=== PATIENT | female | born 1995 | race Caucasian/White ===

== ENCOUNTER 2023-06-17 09:16 | Emergency (ER) | payer SELFPAY ==
[2023-06-17 09:17] VITALS: BP 150/95; PULSE 71; RESP 18; TEMP 36.3; O2SAT 100
--- NOTE | 2023-06-17 09:54 | PC.NURSE ---
Patient up to desk asking for paperwork she brought from OSH because she is leaving. Patient ambulatory out of ED with stead gait and in no acute distress.
== END 2023-06-17 09:54 | disposition left against medical advice (07) ==
LOC: ANHED 09:59
DX: R10.9 Unspecified abdominal pain (principal)
CPT/HCPCS: 99199

== ENCOUNTER 2023-06-17 11:45 | Observation (INO) | payer BC, SELFPAY ==
[2023-06-17] VITALS (34 sets, daily range): BP systolic 102–146; BP diastolic 56–100; PULSE 58–98; RESP 12–19; TEMP 36.6–37.3; O2SAT 96–100
--- NOTE | ~2023-06-17 | NM_ITS ---
EXAMINATION: NM hepatobiliary wo pharm DATE: 06/18/2023 12:13 INDICATION: Right upper quadrant abdominal pain. COMPARISON: Ultrasound 06/17/2023 TECHNIQUE: 4.4 mCi Tc-99m mebrofenin (Choletec) was administered intravenously. Scintigraphic images of the abdomen were obtained for one hour. Then, the patient drank 8 oz Ensure, and imaging was cont inued for 60 minutes. FINDINGS: There is normal clearance of radiotracer from the blood pool. There is homogeneous tracer u ptake by the liver. Activity progresses to the bowel and gallbladder. Gallbladder ejection fraction (GBEF) was 20%. Note that with this technique, normal GBEF >= 33%. IMPRESSION: 1. Low gallbladder ejection fraction, consistent with gallbladder dysfunction and/or chronic cholecy stitis. Reviewed, dictated and finalized at location A. LAR ALARM SUPERINTENDENT IMPRESSION: 1. Low gallbladder ejection fraction, consistent with gallbladder dysfunction and/or chronic cholecystitis.
--- NOTE | ~2023-06-17 | US_ITS ---
EXAMINATION: US right upper quadrant DATE: 06/17/2023 16:21 INDICATION: RUQ pain TECHNIQUE: Multiple grayscale and Doppler ultrasound images of the right upper quadrant were obtained . COMPARISON: None available. FINDINGS: The pancreas is poorly visualized. The hand shaker reports significant midline tenderness t o transducer pressure during the examination. The liver is normal with normal echogenicity and echote xture. No surface nodularity. Normal hepatopetal flow in the main portal vein. The gallbladder is nor mal with no abnormal wall thickening, pericholecystic fluid or stones. The common bile duct measures 3 mm. There was no sonographic Argueta sign. IMPRESSION: Poor visualization of the pancreas. Significant midline tenderness encountered during examination. Reviewed, dictated and finalized at location K. CAL VOUCHER CLERK
--- NOTE | ~2023-06-17 | XR_ITS ---
XR chest 2V 06/18/2023 08:45 Indication: Chest pain Procedure: PA and lateral views the chest Comparison: No prior studies for comparison. Findings: Heart size normal. There is evidence for chronic granulomatous disease. No focal air space disease, pulmonary edema, pleural effusion or suspected pneumothorax. Impression: 1: No acute cardiopulmonary disease. Reviewed, dictated and finalized at location L. NG FORMER HAND Impression: 1: No acute cardiopulmonary disease.
[2023-06-17 15:36] LABS: Basophils Percent Auto 0.2 % (0.2-1.2); Hematocrit 39.7 % (37.0-47.0); Hemoglobin 13.5 g/dL (12.0-15.0); Immature Granulocyte Absolute 0.03 K/mm3 (0.00-0.031); Immature Granulocyte Percent A 0.3 % (0-0.5); Lymphocytes Absolute Auto 0.79 K/mm3 (0.9-3.2); Lymphocytes Percent Auto 6.9 % (18.3-44.2); Mean Corpuscular Hemoglobin 28.8 pg (26-34); Mean Corpuscular Volume 84.8 fl (80-100); Mean Platelet Volume 11.1 fl (7.4-10.4); Monocytes Absolute Auto 0.1 K/mm3 (0.1-0.6); Monocytes Percent Auto 1.2 % (2.6-8.5); Neutrophils Absolute Auto 10.4 K/mm3 (1.3-6.7); Neutrophils Percent Auto 91.4 % (45.5-73.1); Platelet Count Result 245 k/mm3 (150-375); Red Blood Count 4.68 M/mm3 (4.2-5.4); Red Cell Distribution Width 12.8 % (11.5-14.5); White Blood Count 11.4 K/mm3 (4.5-10.0)
[2023-06-17 15:38] LABS: Appearance Urine Clear (Clear); Bilirubin Urine Negative (Negative); Blood Urine Negative (Negative); Color Urine Yellow (Yellow); Glucose Urine UA Negative (Negative); Ketones Urine 2+ mg/dL (Negative); Leukocyte Esterase Ur Negative LEU/UL (Negative); Nitrate Urine Negative (Negative); Protein Urine Negative (Negative); Specific Grav Ur 1.015 (1.001-1.035); Urobilinogen Urine 0.2 mg/dL (<2.0); pH Urine 8.5 (5.0-9.0)
[2023-06-17 15:46] LABS: Alanine Aminotransferase 33 U/L (6-35); Albumin Level 4.7 g/dL (3.5-5.1); Alkaline Phosphatase 74 U/L (38-126); Anion Gap 10 mmol/L (8-16); Aspartate Amino Transferase 29 U/L (14-36); Bilirubin,Total 1.7 mg/dL (0.2-1.3); Blood Urea Nitrogen 7 mg/dL (7-17); Carbon Dioxide 24 mmol/L (22-30); Chloride 103 mmol/L (98-107); Estimated CRCL calculation 128 ml/min; Estimated Glomerular Filt Rate > 60; Glucose 130 mg/dL (65-110); Lipase 108 U/L (23-300); Potassium 3.3 mmol/L (3.4-5.0); Sodium 137 mmol/L (137-145)
[2023-06-17 15:50] LABS: Add Urine Microscopic? NO
[2023-06-17] MEDS: MORPHINE SULFATE (*CRX) 4 MG/ML INJ IV PUSH ×2 (15:56→18:13)
[2023-06-17] MEDS: ONDANSETRON INJ 4 MG/2 ML VIAL IV PUSH ×2 (15:56→18:13)
[2023-06-17] MEDS: SODIUM CHLORIDE 0.9% IV 1,000 ML 999 ML IV CONT (15:56)
--- NOTE | 2023-06-17 17:52 | ED.GENADULT ---
HPI - General Adult General Chief complaint: Abdominal Pain Stated complaint: abd pain Time Seen by Provider: 06/17/23 15:14 History of Present Illness HPI narrative: Patient is a 28-year-old female who presents ER with abdominal pain over last 3 days. She was seen at [facility] and had unremarkable lab work and abnormal CT scan of her abdomen and pelvis. She was started on Levsin, famotidine, and omeprazole. Her pain persists. It is worse with eating drinking. It is intermittent in nature. No radiation. Mainly located in the epigastrium and right upper quadrant. No history of gallstones. No fevers or chills or sweats. Related Data Allergies Allergy/AdvReac Type Severity Reaction Status Date / Time No Known Allergies Allergy Verified 06/17/23 15:53 Review of Systems Review of Systems: All systems reviewed & are unremarkable except as noted in HPI and below Constitutional: Constitutional: Reports no additional constitutional complaints ENT: Reports system reviewed and no additional complaints, except as documented Cardiovascular: Cardiovascular: Reports no additional cardiovascular complaints Respiratory: Respiratory: Reports no additional respiratory complaints Gastrointestinal: Gastrointestinal: Reports abdominal pain, Reports heartburn, Denies diarrhea, Reports nausea and Reports vomiting Genitourinary: Genitourinary: Reports no additional female genitourinary complaints Musculoskeletal: Musculoskeletal: Reports no additional musculoskeletal complaints PMFSH Past Medical History Medical History (Updated 06/17/23 @ 18:13 by Jimmy Mello MD) Healthy female adult Surgical History Surgical History (Updated 06/17/23 @ 18:11 by Jimmy Mello MD) No history of previous surgery Exam Narrative: GENERAL: uncomfortable-appearing, well-nourished, and in no acute distress. HEAD: Normocephalic, atraumatic. ENT: Nares clear, no rhinorrhea or epistaxis. Mucous membranes moist. NECK: Supple. CHEST: Clear to auscultation. No respiratory distress. HEART: Regular rate and rhythm. Normal peripheral pulses. ABDOMEN: Soft, tender palpation with guarding in the right upper quadrant epigastrium, nondistended. EXTREMITIES: Normal range of motion. No edema. SKIN: Warm, dry, no rash. NEURO: Alert and oriented x3. PSYCH: Normal mood and affect. Course Course Emergency Course: Patient is still reporting significant pain after morphine. White count mildly elevated with 91% neutrophils. Slight elevation in bilirubin as well. Will recommend admission for observation and HIDA scan, possible MRCP. Will have GI consult tomorrow. Accepted by the hospitalist. Will keep NPO and hydrate. Vital Signs Vital signs: Vital Signs Temperature 97.8 F 06/17/23 12:14 Pulse Rate 80 06/17/23 12:14 Respiratory Rate 16 06/17/23 12:14 Blood Pressure 133/94 H 06/17/23 12:14 Pulse Oximetry 100 06/17/23 12:14 Oxygen Delivery Room Air 06/17/23 12:14 Temperature 97.8 F 06/17/23 12:14 Pulse Rate 73 06/17/23 15:53 Respiratory Rate 18 06/17/23 15:53 Blood Pressure 130/99 H 06/17/23 15:53 Pulse Oximetry 99 06/17/23 15:53 Oxygen Delivery Room Air 06/17/23 15:23 Medical Decision Making Vital Signs Vital Signs: Vital Signs Temperature 97.8 F 06/17/23 12:14 Pulse Rate 80 06/17/23 12:14 Respiratory Rate 16 06/17/23 12:14 Blood Pressure 133/94 H 06/17/23 12:14 Pulse Oximetry 100 06/17/23 12:14 Oxygen Delivery Room Air 06/17/23 12:14 Temperature 97.8 F 06/17/23 12:14 Pulse Rate 73 06/17/23 15:53 Respiratory Rate 18 06/17/23 15:53 Blood Pressure 130/99 H 06/17/23 15:53 Pulse Oximetry 99 06/17/23 15:53 Oxygen Delivery Room Air 06/17/23 15:23 Lab Data 06/17/23 15:29 06/17/23 15:29 Labs: Lab Results 06/17/23 Range/Units 15:29 WBC 11.4 H (4.5-10.0) K/mm3 RBC 4.68 (4.2-5
--- NOTE | 2023-06-17 20:44 | ADMGEN ---
This patient, Chiquita Warner, was admitted to [facility] Surg Room 312-01. Patient/family oriented to hospital policies and general routines including ID bracelet, bed and alarms, visiting hours, pain management, procedures, bathroom and other care routines, personal items, smoking policy, room service/diet, and visiting hours. Information on how to activate the Rapid Response Team has been discussed. Patient/Family are encouraged to report perceived risks to care and to ask questions if they do not understand what they are told or what they should do.
[2023-06-17] MEDS: SODIUM CHLORIDE 0.9% IV 1,000 ML 125 ML IV CONT (21:11)
[2023-06-18] VITALS (10 sets, daily range): BP systolic 116–140; BP diastolic 84–100; PULSE 71–83; RESP 16–20; TEMP 36.2–37.2; O2SAT 99–100
--- NOTE | 2023-06-18 01:22 | ECG_ITS ---
Measurements Intervals [place] Rate: 72 P: 42 TN: 152 QRS: 19 QRSD: 96 T: 11 QT: 379 QTc: 416 Interpretive Statements SINUS RHYTHM NO PREVIOUS ECG AVAILABLE FOR COMPARISON Electronically Signed On 06-18-2023 9:17:41 GUEST SERVICES DIRECTOR by Erika Chan M.D.
--- NOTE | 2023-06-18 01:25 | PM.IMHP ---
H&P: HPI History of Present Illness Date/Time: 06/18/23 01:25 Chief Complaint: abdominal pain Narrative: 28F w/ no PMH or surgeries who presents for the second time with abdominal/chest pain. On she was sitting and developed left sided upper abdominal pain along the ribline which was sharp and then migrates to the middle upper and then right side of belly. It lasts for approx 6 hours and is aggravated by movement, deep breathing, and eating. She vomits a few times nonbloody during the pain. She presented to [facility] and had unremarkable lab work. She was started on Levsin, famotidine and omeprazole. The pain eventually returned on day of admission while she was sitting again. She denies any other symptoms and upon evaluation in Room 312 she reports the pain has subsided, although it initially was resistance to morphine in the ER. She denies cough, fever, smoking, diarrhea. Review of Systems Review of Systems: All systems reviewed & are unremarkable except as noted in HPI and below (HPI) [facility] Past Medical History Medical History (Updated 06/18/23 @ 01:29 by Fallon Espinal MD) Healthy female adult Surgical History Surgical History (Updated 06/17/23 @ 18:11 by Jimmy Mello MD) No history of previous surgery Social History Social History Smoking status: Never smoker Do You Feel Safe in your Home?: Yes Lack of Transportation: No Lack of Food: Never True Current Housing: I Have Housing Concerned About Future Housing: No Difficulty Paying Gas/Electric Bills: No Difficulty Paying for Meds: No Currently Unemployed: No Education: Bachelor's Degree Difficulty w/ Childcare or Family Care: No Spiritual care concerns: No Meds Home Medications and Allergies Home Medications Medication Instructions Recorded Confirmed Type No Home Medications 06/17/23 06/17/23 History Allergies Allergy/AdvReac Type Severity Reaction Status Date / Time almond Allergy Other Verified 06/17/23 20:48 Vital Signs Vital Signs - 24 hr 06/17/23 12:14 06/17/23 15:23 06/17/23 15:53 Temperature 97.8 F Pulse Rate 80 72 73 Respiratory Rate 16 16 18 Blood Pressure 133/94 H 130/99 H Pulse Oximetry 100 99 99 Oxygen Delivery Room Air Room Air 06/17/23 18:18 06/17/23 15:22 06/17/23 15:27 Temperature Pulse Rate 75 71 58 L Respiratory Rate 16 13 Blood Pressure 113/74 102/74 Pulse Oximetry 100 100 99 Oxygen Delivery 06/17/23 15:30 06/17/23 15:31 06/17/23 15:45 Temperature Pulse Rate 83 78 72 Respiratory Rate 19 16 Blood Pressure 137/93 H Pulse Oximetry 100 100 Oxygen Delivery 06/17/23 15:53 06/17/23 16:00 06/17/23 16:01 Temperature Pulse Rate 73 77 80 Respiratory Rate 15 15 12 Blood Pressure 130/99 H 133/96 H Pulse Oximetry 99 100 100 Oxygen Delivery 06/17/23 16:15 06/17/23 16:16 06/17/23 16:30 Temperature Pulse Rate Respiratory Rate Blood Pressure 145/87 H Pulse Oximetry 100 100 100 Oxygen Delivery 06/17/23 16:31 06/17/23 16:45 06/17/23 16:46 Temperature Pulse Rate Respiratory Rate Blood Pressure 136/84 146/100 H Pulse Oximetry 98 98 100 Oxygen Delivery 06/17/23 17:00 06/17/23 17:01 06/17/23 18:18 Temperature Pulse Rate Respiratory Rate Blood Pressure Pulse Oximetry 100 100 100 Oxygen Delivery 06/17/23 18:19 06/17/23 18:30 06/17/23 18:31 Temperature Pulse Rate Respiratory Rate Blood Pressure 113/74 108/56 L Pulse Oximetry 99 96 96 Oxygen Delivery 06/17/23 18:45 06/17/23 19:00 06/17/23 19:15 Temperature Pulse Rate Respiratory Rate Blood Pressure Pulse Oximetry 98 99 100 Oxygen Delivery 06/17/23 20:10 06/17/23 19:29 06/17/23 19:30 Temperature Pulse Rate Respiratory Rate 16 Blood Pressure 118/78 118/74 Pulse Oximetry 98 100 100 Oxygen Delivery 06/17/23 19:45 06/17/23 20:00 06/17/23 20:
[2023-06-18 01:59] LABS: Hematocrit 34.9 % (37.0-47.0); Hemoglobin 11.8 g/dL (12.0-15.0); Mean Corpuscular HGB Conc 33.8 g/dl (32-36); Mean Corpuscular Hemoglobin 29.1 pg (26-34); Mean Corpuscular Volume 86.2 fl (80-100); Mean Platelet Volume 11.5 fl (7.4-10.4); Platelet Count Result 230 k/mm3 (150-375); Red Blood Count 4.05 M/mm3 (4.2-5.4); Red Cell Distribution Width 12.7 % (11.5-14.5)
[2023-06-18 02:14] LABS: Alanine Aminotransferase 27 U/L (6-35); Albumin Level 3.9 g/dL (3.5-5.1); Alkaline Phosphatase 60 U/L (38-126); Anion Gap 8 mmol/L (8-16); Aspartate Amino Transferase 20 U/L (14-36); Bilirubin,Total 1.7 mg/dL (0.2-1.3); Blood Urea Nitrogen 6 mg/dL (7-17); Calcium 8.7 mg/dL (8.4-10.2); Carbon Dioxide 25 mmol/L (22-30); Chloride 108 mmol/L (98-107); Estimated CRCL calculation 128 ml/min; Estimated Glomerular Filt Rate > 60; Glucose 89 mg/dL (65-110); Sodium 141 mmol/L (137-145)
[2023-06-18] MEDS: KCL 20 MEQ/SW 100 ML 100 ML 50 MEQ IVPB (02:18)
[2023-06-18 02:25] LABS: Troponin I < 0.012 ng/mL (0.000-0.034)
--- NOTE | 2023-06-18 07:02 | WPDGICN ---
Assessment and Plan Assessment and plan (1) Abdominal pain: Code(s): R10.9 - Unspecified abdominal pain Status: Acute Assessment and Plan: the pain actually is in the very lower subcostal area. It did radiated to the epigastric area. It was there that she had the most severe discomfort, hot burning sensation but that has resolved. An ultrasound of the abdomen was done which was unremarkable except that she was quite tender during the exam. She is scheduled for a HIDA scan today. If that is unremarkable I will proceed to perform EGD later today. (2) Left-sided chest pain: Code(s): R07.9 - Chest pain, unspecified Status: Acute Assessment and Plan: As she shows me where she has her discomfort it seems that this may be form of costochondritis of fibromyalgia. What is I have however is held this comes on acutely and subsides then within a few hours and then is gone for several days. Plan HIDA scan, the EGD GI Consult Note Consult date/time: 06/18/23 07:02 HPI: Chiquita Warner is a 28 year old female who was admitted yesterday with severe pain across her lower thorax upper abdomen. She states that this happened a [place] also. She had gone to emergency room and was subsequently discharged. She states that she has had this from time to time. Generally she she feels a pressure in the left upper quadrant near the bottom of her rib cage. She might have a bowel movement in that it is gone. These last 2 attacks of been severe. It begins in the left upper quadrant and the last episode radiate across towards the right upper quadrant. Weighted was most intense it felt as though there was a hot coal in the xiphoid area in fact it was difficult for her to take a breath because of the pain. She has not had a fever. She does not use NSAIDs. There is no history of peptic ulcer disease. She kg takes an [id number] antacid for heartburn. She denies weight loss. There is no available family history due to her being adopted. Review of Systems Review of Systems: All systems reviewed & are unremarkable except as noted in HPI and below PMFSH Past Medical History Medical History Healthy female adult Surgical History Surgical History No history of previous surgery Social History Social History Smoking status: Never smoker Do You Feel Safe in your Home?: Yes Lack of Transportation: No Lack of Food: Never True Current Housing: I Have Housing Concerned About Future Housing: No Difficulty Paying Gas/Electric Bills: No Difficulty Paying for Meds: No Currently Unemployed: No Education: Bachelor's Degree Difficulty w/ Childcare or Family Care: No Spiritual care concerns: No Meds Home Medications and Allergies Home Medications Medication Instructions Recorded Confirmed Type No Home Medications 06/17/23 06/17/23 History Allergies Allergy/AdvReac Type Severity Reaction Status Date / Time almond Allergy Other Verified 06/17/23 20:48 Vital Signs Vital Signs - 24 hr 06/17/23 12:14 06/17/23 15:23 06/17/23 15:53 Temperature 36.6 C Pulse Rate 80 72 73 Respiratory Rate 16 16 18 Blood Pressure 133/94 H 130/99 H Pulse Oximetry 100 99 99 Oxygen Delivery Room Air Room Air 06/17/23 18:18 06/17/23 15:22 06/17/23 15:27 Temperature Pulse Rate 75 71 58 L Respiratory Rate 16 13 Blood Pressure 113/74 102/74 Pulse Oximetry 100 100 99 Oxygen Delivery 06/17/23 15:30 06/17/23 15:31 06/17/23 15:45 Temperature Pulse Rate 83 78 72 Respiratory Rate 19 16 Blood Pressure 137/93 H Pulse Oximetry 100 100 Oxygen Delivery 06/17/23 15:53 06/17/23 16:00 06/17/23 16:01 Temperature Pulse Rate 73 77 80 Respiratory Rate 15 15 12 Blood Pressure 130/99 H 133/96 H Pul
[2023-06-18] MEDS: PANTOPRAZOLE SODIUM IV 40 MG VIAL IV PUSH (08:07)
[2023-06-18] MEDS: SODIUM CHLORIDE 0.9% IV 1,000 ML 125 ML IV CONT (08:08)
[2023-06-18 09:36] LABS: Influenza A QL RT-PCR Negative (Negative); Influenza B QL RT-PCR Negative (Negative); RSV RNA, RT-PCR Negative (Negative); SARS-CoV-2 RNA PCR Negative (Negative)
--- NOTE | 2023-06-18 10:24 | PM.IMPN ---
Progress Note: A&P Assessment and Plan (1) Abdominal pain: Code(s): R10.9 - Unspecified abdominal pain Status: Acute Plan 28F w/ no PMH or surgeries who presents for the second time with abdominal/chest pain. On she was sitting and developed left sided upper abdominal pain along the ribline which was sharp and then migrates to the middle upper and then right side of belly. It lasts for approx 6 hours and is aggravated by movement, deep breathing, and eating. She vomits a few times nonbloody during the pain. She presented to [facility] and had unremarkable lab work. She was started on Levsin, famotidine and omeprazole. The pain eventually returned on day of admission while she was sitting again. She denies any other symptoms and upon evaluation in Room 312 she reports the pain has subsided, although it initially was resistance to morphine in the ER. She denies cough, fever, smoking, diarrhea. Admitted on 06/17/23 The pt was admitted for HIDA scan and GI consult. HIDA scan with low gallbladder ejection fraction consistent with gallbladder dysfunction and/or chronic cholecystitis. She is going for EGD for further evaluation per GI. Will consult General surgery for possible gallbladder related etiology with the abnormal HIDA scan. The pain starts on left side, is burning, and exacerbated by deep breathing, eating, and movement. Full Code. SCD's. Subjective Date/time seen: 06/18/23 10:24 Interval history: Feeling better. Underwent HIDA scan today. Scheduled to get a EGD Review of Systems Review of Systems: All systems reviewed & are unremarkable except as noted in HPI and below (HPI) Exam Narrative: GENERAL:? Well-nourished, and in no acute distress. HEAD: Normocephalic, atraumatic. ENT: Nares clear, no rhinorrhea or epistaxis.? Mucous membranes moist. NECK: Supple. CHEST: Clear to auscultation.? No respiratory distress. HEART: Regular rate and rhythm. ? Normal peripheral pulses. ABDOMEN: Soft,?nontender, nondistended. EXTREMITIES: Normal range of motion.? No edema. SKIN: Warm, dry, no rash. NEURO: Alert and oriented x3. PSYCH: Normal mood and affect. Objective Data Vital Signs Vital Signs: Vital Signs - 24 hr 06/17/23 12:14 06/17/23 15:23 06/17/23 15:53 Temperature 97.8 F Pulse Rate 80 72 73 Respiratory Rate 16 16 18 Blood Pressure 133/94 H 130/99 H Pulse Oximetry 100 99 99 Oxygen Delivery Room Air Room Air 06/17/23 18:18 06/17/23 15:22 06/17/23 15:27 Temperature Pulse Rate 75 71 58 L Respiratory Rate 16 13 Blood Pressure 113/74 102/74 Pulse Oximetry 100 100 99 Oxygen Delivery 06/17/23 15:30 06/17/23 15:31 06/17/23 15:45 Temperature Pulse Rate 83 78 72 Respiratory Rate 19 16 Blood Pressure 137/93 H Pulse Oximetry 100 100 Oxygen Delivery 06/17/23 15:53 06/17/23 16:00 06/17/23 16:01 Temperature Pulse Rate 73 77 80 Respiratory Rate 15 15 12 Blood Pressure 130/99 H 133/96 H Pulse Oximetry 99 100 100 Oxygen Delivery 06/17/23 16:15 06/17/23 16:16 06/17/23 16:30 Temperature Pulse Rate Respiratory Rate Blood Pressure 145/87 H Pulse Oximetry 100 100 100 Oxygen Delivery 06/17/23 16:31 06/17/23 16:45 06/17/23 16:46 Temperature Pulse Rate Respiratory Rate Blood Pressure 136/84 146/100 H Pulse Oximetry 98 98 100 Oxygen Delivery 06/17/23 17:00 06/17/23 17:01 06/17/23 18:18 Temperature Pulse Rate Respiratory Rate Blood Pressure Pulse Oximetry 100 100 100 Oxygen Delivery 06/17/23 18:19 06/17/23 18:30 06/17/23 18:31 Temperature Pulse Rate Respiratory Rate Blood Pressure 113/74 108/56 L Pulse Oximetry 99 96 96 Oxygen Delivery 06/17/23 18:45 06/17/23 19:00 06/17/23 19:15 Temperature Pulse Rate Respiratory Rate Blood Pressure Pulse Oximetry 98 99 100 Oxygen Delivery 06/17/23 20:10 06/17/23 19:29 06/17/23 19:30 Temper
[2023-06-18] MEDS: POTASSIUM CHLORIDE INJ 40 MEQ in SODIUM CHLORIDE 0.9% IV 500 ML 130 MEQ IVPB (11:35)
[2023-06-18] MEDS: METOCLOPRAMIDE HCL INJ 10 MG/2 ML VIAL IV PUSH (12:24)
--- NOTE | 2023-06-18 14:07 | PCCCNOTE ---
On 06/18/23, the student, [Felicity Puga], provided care and completed [facility] documentation on this patient. I have reviewed the student's documentation and agree with the findings.
--- NOTE | 2023-06-18 15:26 | WPDANESEPPF ---
Anes - Initial Pre Proc Eval Procedure: Operation Date: 06/18/23 15:30 Proposed Procedures p Esophagogastroduodenoscopy - Gomez Mancini MD Date/Time: 06/18/23 15:26 Surgeon: Luisito Gonzalez MD Pre Op Diagnosis: Uncontrolled RUQ pain Patient Data Age: 28 Gender: F Height: 1.65 m Weight: 86.4 kg Last Vital Signs Temp 36.2 C L 06/18/23 14:00 Pulse 83 06/18/23 14:00 Resp 18 06/18/23 14:00 BP 131/85 06/18/23 14:00 Pulse Ox 100 06/18/23 14:00 O2 Del Method Room Air 06/18/23 08:00 Allergies Allergy/AdvReac Type Severity Reaction Status Date / Time almond Allergy Other Verified 06/17/23 20:48 Home Medications Medication Instructions Recorded Confirmed Type No Home Medications 06/17/23 06/17/23 History Laboratory Tests 06/17/23 06/18/23 06/18/23 15:29 01:46 08:49 WBC 11.4 H K/mm3 10.0 K/mm3 (4.5-10.0) (4.5-10.0) RBC 4.68 M/mm3 4.05 L M/mm3 (4.2-5.4) (4.2-5.4) Hgb 13.5 g/dL 11.8 L g/dL (12.0-15.0) (12.0-15.0) Hct 39.7 % 34.9 L % (37.0-47.0) (37.0-47.0) MCV 84.8 fl 86.2 fl (80-100) (80-100) MCH 28.8 pg 29.1 pg (26-34) (26-34) MCHC 34.0 g/dl 33.8 g/dl (32-36) (32-36) RDW 12.8 % 12.7 % (11.5-14.5) (11.5-14.5) Plt Count 245 k/mm3 230 k/mm3 (150-375) (150-375) MPV 11.1 H fl 11.5 H fl (7.4-10.4) (7.4-10.4) Immature Gran % (Auto) 0.3 % (0-0.5) Neut % (Auto) 91.4 H % (45.5-73.1) Lymph % (Auto) 6.9 L % (18.3-44.2) [place] % (Auto) 1.2 L % (2.6-8.5) Eos % (Auto) 0.0 % (0-4.4) Baso % (Auto) 0.2 % (0.2-1.2) Lymph # (Auto) 0.79 L K/mm3 (0.9-3.2) [place] # (Auto) 0.1 K/mm3 (0.1-0.6) Eos # (Auto) 0.0 K/mm3 (0-0.3) Baso # (Auto) 0.0 K/mm3 (0.0-0.1) Abs Immat Gran (auto) 0.03 K/mm3 (0.00-0.031) Absolute Neuts (auto) 10.4 H K/mm3 (1.3-6.7) Absolute Nucleated RBC 0.0 K/mm3 (0.0-0.012) Nucleated RBC % 0.0 % (0.0-0.2) Sodium 137 mmol/L 141 mmol/L (137-145) (137-145) Potassium 3.3 L mmol/L 3.0 L mmol/L (3.4-5.0) (3.4-5.0) Chloride 103 mmol/L 108 H mmol/L (98-107) (98-107) Carbon Dioxide 24 mmol/L 25 mmol/L (22-30) (22-30) Anion Gap 10 mmol/L 8 mmol/L (8-16) (8-16) BUN 7 mg/dL 6 L mg/dL (7-17) (7-17) Creatinine 0.60 L mg/dL 0.60 L mg/dL (0.7-1.0) (0.7-1.0) Estim Creat Clear Calc 128 ml/min 128 ml/min Estimated GFR > 60 > 60 (59 - ) (59 - ) Glucose 130 H mg/dL 89 mg/dL (65-110) (65-110) Calcium 9.0 mg/dL 8.7 mg/dL (8.4-10.2) (8.4-10.2) Magnesium 2.0 mg/dL (1.6-2.3) Total Bilirubin 1.7 H mg/dL 1.7 H mg/dL (0.2-1.3) (0.2-1.3) AST 29 U/L 20 U/L (14-36) (14-36) ALT 33 U/L 27 U/L (6-35) (6-35) Alkaline Phosphatase 74 U/L 60 U/L (38-126) (38-126) Troponin I < 0.012 ng/mL (0.000-0.034) Total Protein 8.0 g/dL 7.0 g/dL (6.3-8.2) (6.3-8.2) Albumin 4.7 g/dL 3.9 g/dL (3.5-5.1) (3.5-5.1) Lipase 108 U/L (23-300) Urine Color Yellow (Yellow) Urine Appearance Clear (Clear) Urine pH 8.5 (5.0-9.0) Ur Specific [place] 1.015 (1.001-1.035) Urine Protein Negative mg/dL (Negative) Urine Glucose (UA) Negative mg/dL (Negative) Urine Ketones 2+ H mg/dL (Negative) Ur Blood (Man) Negative (Negative) Urine Nitrate Negative (Negative) Urine Bilirubin Negative (Negative) Urine Urobilinogen 0.2 mg/dL (<2.0) Leukocyte Esterase Rfl Negative AL/UL (Negative) Influenza A (RT-PCR) Negative (Negative) Influenza B (RT-PCR) Negative (Negative) RSV (RT-PCR) Neg
[2023-06-18] MEDS: LACTATED RINGERS 1,000 ML 150 ML IV CONT (15:35)
[2023-06-18] MEDS: ONDANSETRON INJ 4 MG/2 ML VIAL IV PUSH ×2 (16:07→20:13)
[2023-06-18] MEDS: MORPHINE SULFATE (*CRX) 2 MG/ML INJ IV PUSH ×3 (16:32→20:14)
[2023-06-18] MEDS: PROMETHAZINE HCL 25 MG/ML AMPUL 12.5 MG IV PUSH (17:21)
--- NOTE | 2023-06-18 20:35 | PM.CNGS ---
Assessment and Plan Assessment and plan (1) Abdominal pain: Code(s): R10.9 - Unspecified abdominal pain Status: Acute Assessment and Plan: seems more musculoskeletal in nature, not consistent c biliary dz, imaging all benign and no reproduction of symptoms c HIDA, cont serial exams and observation for now, try to ADAT History of Present Illness Consult details Consult date: 06/18/23 Reason for consult: abdominal pain Requesting physician: Lester Donald MD Narrative: The pt is a 28 y/o F presenting c/o severe, intermittent upper abd pain. Pt reports pain comes in waves and comes in a band like distribution from the LUQ and radiates across her upper abd. Pt reports nausea and poor appetite. Pt reports less severe episodes over the last few mos that mostly stay localized to LUQ. Pt reports she has now had two severe episodes since 06/14 requiring ED visits. Pt reports the episodes can last from minutes to hours. Pt denies any exacerbating or relieving factors. Pt denies reproduction of her symptoms during HIDA scan earlier today, but reports severe symptoms after EGD. Review of Systems Review of Systems: All systems reviewed & are unremarkable except as noted in HPI and below PMFSH Past Medical History Medical History GERD (gastroesophageal reflux disease) Surgical History Surgical History No history of previous surgery Social History Social History Smoking status: Never smoker Do You Feel Safe in your Home?: Yes Lack of Transportation: No Lack of Food: Never True Current Housing: I Have Housing Concerned About Future Housing: No Difficulty Paying Gas/Electric Bills: No Difficulty Paying for Meds: No Currently Unemployed: No Education: Bachelor's Degree Difficulty w/ Childcare or Family Care: No Spiritual care concerns: No Meds Home Medications and Allergies Home Medications Medication Instructions Recorded Confirmed Type No Home Medications 06/17/23 06/17/23 History Allergies Allergy/AdvReac Type Severity Reaction Status Date / Time almond Allergy Other Verified 06/17/23 20:48 Vital Signs Vital Signs - 24 hr 06/17/23 21:15 06/18/23 06:00 06/18/23 08:00 Temperature 37.3 C 37.2 C Pulse Rate 72 74 Respiratory Rate 16 18 Blood Pressure 133/86 119/84 Pulse Oximetry 100 100 100 Oxygen Delivery Room Air 06/18/23 14:00 06/18/23 15:33 06/18/23 15:46 Temperature 36.2 C L 36.6 C Pulse Rate 83 78 71 Respiratory Rate 18 16 20 Blood Pressure 131/85 116/91 H 129/88 Pulse Oximetry 100 100 99 Oxygen Delivery Room Air Room Air 06/18/23 15:56 06/18/23 16:06 06/18/23 16:35 Temperature 36.8 C Pulse Rate 79 80 83 Respiratory Rate 20 20 20 Blood Pressure 137/100 H 140/91 H 131/87 Pulse Oximetry 100 100 100 Oxygen Delivery Room Air Room Air 06/18/23 20:00 Temperature Pulse Rate 83 Respiratory Rate 20 Blood Pressure Pulse Oximetry 100 Oxygen Delivery Room Air Exam Const: General: cooperative, acute distress moderate, uncomfortable and overweight Orientation/consciousness: patient oriented x3 HENMT: Head: normal to inspection, normocephalic and atraumatic Eyes: General: appearance normal, both eyes and all related structures Neck: Neck: normal visual inspection, full ROM and no lymphadenopathy Resp: Auscultation: clear to auscultation bilaterally Cardio: Rate: regular rate Rhythm: regular rhythm GI: Inspection: normal to inspection and distended GI Palp: Yes abdominal tenderness, Yes Soft to palpation, Yes Tenderness to palpation present (GI), No Guarding due to palpation present (GI) and Yes Rigid due to palpation Skin: General skin exam: normal color and no rashes or lesions noted Neuro: General: patient oriented x3 and CN's II-XI intact bilaterally
[2023-06-19 06:00] VITALS: BP 108/62; PULSE 85; RESP 18; TEMP 37.1; O2SAT 99
[2023-06-19 06:52] LABS: Basophils Percent Auto 0.3 % (0.2-1.2); Eosinophils Absolute Auto 0.1 K/mm3 (0-0.3); Eosinophils Percent Auto 1.3 % (0-4.4); Hematocrit 36.1 % (37.0-47.0); Hemoglobin 12.3 g/dL (12.0-15.0); Immature Granulocyte Absolute 0.02 K/mm3 (0.00-0.031); Immature Granulocyte Percent A 0.2 % (0-0.5); Lymphocytes Percent Auto 37.5 % (18.3-44.2); Mean Corpuscular HGB Conc 34.1 g/dl (32-36); Mean Corpuscular Hemoglobin 29.1 pg (26-34); Mean Corpuscular Volume 85.5 fl (80-100); Mean Platelet Volume 11.3 fl (7.4-10.4); Monocytes Absolute Auto 0.6 K/mm3 (0.1-0.6); Monocytes Percent Auto 6.8 % (2.6-8.5); Neutrophils Absolute Auto 4.7 K/mm3 (1.3-6.7); Neutrophils Percent Auto 53.9 % (45.5-73.1); Platelet Count Result 226 k/mm3 (150-375); Red Blood Count 4.22 M/mm3 (4.2-5.4); Red Cell Distribution Width 12.8 % (11.5-14.5); White Blood Count 8.8 K/mm3 (4.5-10.0)
[2023-06-19 07:04] LABS: Alanine Aminotransferase 22 U/L (6-35); Albumin Level 3.5 g/dL (3.5-5.1); Alkaline Phosphatase 55 U/L (38-126); Anion Gap 10 mmol/L (8-16); Aspartate Amino Transferase 18 U/L (14-36); Bilirubin,Total 1.9 mg/dL (0.2-1.3); Blood Urea Nitrogen 8 mg/dL (7-17); Calcium 8.4 mg/dL (8.4-10.2); Carbon Dioxide 22 mmol/L (22-30); Chloride 106 mmol/L (98-107); Estimated CRCL calculation 128 ml/min; Estimated Glomerular Filt Rate > 60; Glucose 81 mg/dL (65-110); Magnesium 2.1 mg/dL (1.6-2.3); Potassium 3.3 mmol/L (3.4-5.0); Sodium 138 mmol/L (137-145)
--- NOTE | 2023-06-19 07:37 | PM.PNGS ---
Progress Note: A&P Assessment and Plan (1) Abdominal pain: Code(s): R10.9 - Unspecified abdominal pain Status: Acute Assessment and Plan: resolved this am, no acute surgical issues, etiology likely musculoskeletal, did d/w pt that if she does have biliary sx in the future she can f/u c me in the office as outpt, will s/o, call c ?s, issues Subjective Subjective Date/Time Seen: 06/19/23 07:37 Interval history: feels much better this am, reports that Flexiril seems to have really helped Review of Systems Review of Systems: All systems reviewed & are unremarkable except as noted in HPI and below Exam Const: General: cooperative, comfortable and no acute distress Resp: Auscultation: clear to auscultation bilaterally Cardio: Rate: regular rate Rhythm: regular rhythm GI: Inspection: normal to inspection and non-distended GI Palp: No abdominal tenderness, Yes Soft to palpation, No Tenderness to palpation present (GI), No Guarding due to palpation present (GI) and No Rigid due to palpation Objective Data Vital Signs Vital Signs: Vital Signs - 24 hr 06/18/23 08:00 06/18/23 14:00 06/18/23 15:33 Temperature 36.2 C L 36.6 C Pulse Rate 83 78 Respiratory Rate 18 16 Blood Pressure 131/85 116/91 H Pulse Oximetry 100 100 100 Oxygen Delivery Room Air Room Air 06/18/23 15:46 06/18/23 15:56 06/18/23 16:06 Temperature Pulse Rate 71 79 80 Respiratory Rate 20 20 20 Blood Pressure 129/88 137/100 H 140/91 H Pulse Oximetry 99 100 100 Oxygen Delivery Room Air Room Air Room Air 06/18/23 16:35 06/18/23 20:00 06/18/23 21:52 Temperature 36.8 C 36.9 C Pulse Rate 83 83 71 Respiratory Rate 20 20 16 Blood Pressure 131/87 139/94 H Pulse Oximetry 100 100 100 Oxygen Delivery Room Air 06/19/23 06:00 Temperature 37.1 C Pulse Rate 85 Respiratory Rate 18 Blood Pressure 108/62 Pulse Oximetry 99 Oxygen Delivery Intake/Output Intake/Output: Intake & Output 06/16/23 06/17/23 06/18/23 06/19/23 23:59 23:59 23:59 23:59 Intake Total 1000 420 200 Balance 1000 420 200 Meds/Results Medications: Active Medications Generic Name Dose Route Start Last Admin Trade Name Freq PRN Reason Stop Dose Admin Sodium Chloride 1,000 mls @ 125 mls/hr 06/18/23 07:00 06/18/23 08:08 Normal Saline Iv IV CONT 125 mls/hr .Q8H CUCA Administration Morphine Sulfate 2 mg 06/18/23 01:08 06/18/23 20:14 Morphine Sulfate (*Crx) 2 Mg/Ml Inj IV PUSH 2 mg Q4H PRN Administration Pain Rated 7-10 Ondansetron HCl 4 mg 06/17/23 17:52 06/18/23 20:13 Ondansetron Inj 4 Mg/2 Ml Vial IV PUSH 4 mg Q4H PRN Administration Nausea Pantoprazole Sodium 40 mg 06/18/23 09:00 06/18/23 08:07 Pantoprazole Sodium Iv 40 Mg Vial IV PUSH 40 mg QAM CUCA Administration Radiology Results: ITS Impressions Upper Quadrant Ultrasound 06/17/23 16:25 IMPRESSION: Poor visualization of the pancreas. Significant midline tenderness encountered during examination. Chest X-Ray 06/18/23 08:53 Impression: 1: No acute cardiopulmonary disease. Hepatobiliary Scan Nuclear Medicine 06/18/23 12:15 IMPRESSION: 1. Low gallbladder ejection fraction, consistent with gallbladder dysfunction and/or chronic cholecystitis. Labs Labs: Laboratory Results - last 24 hr 06/18/23 06/19/23 08:49 06:17 WBC 8.8 RBC 4.22 Hgb 12.3 Hct 36.1 L MCV 85.5 MCH 29.1 MCHC 34.1 RDW 12.8 Plt Count 226 MPV 11.3 H Immature Gran % (Auto) 0.2 Neut % (Auto) 53.9 Lymph % (Auto) 37.5 Boundary % (Auto) 6.8 Eos % (Auto) 1.3 Baso % (Auto) 0.3 Lymph # (Auto) 3.30 H Boundary # (Auto) 0.6 Eos # (Auto) 0.1 Baso # (Auto) 0.0 Abs Immat Gran (auto) 0.02 Absolute Neuts (auto) 4.7 Absolute Nucleated RBC 0.0 Nucleated RBC % 0.0 Sodium 138 Potassium 3.3 L Chloride 106 Carbon Dioxide 22 Anion Gap 10 BUN 8 Creatinine 0.60 L Est
[2023-06-19] MEDS: PANTOPRAZOLE SODIUM IV 40 MG VIAL IV PUSH (09:33)
[2023-06-19] MEDS: POTASSIUM CHLORIDE 20 MEQ ER TABLET 40 MEQ PO (09:33)
--- NOTE | 2023-06-19 12:43 | PM.DS ---
DS: Admitting Diagnosis Discharge Date 06/19/2023 Admitting Diagnosis abdominal pain/nausea/vomiting DS: Discharge Diagnosis Discharge Diagnosis (1) Abdominal pain: Code(s): R10.9 - Unspecified abdominal pain Status: Acute DS: Summary Hospital Course Hospital Course: 28F w/ no PMH or surgeries who presents for the second time with abdominal/chest pain. On Dina she was sitting and developed left sided upper abdominal pain along the ribline which was sharp and then migrates to the middle upper and then right side of belly. It lasts for approx 6 hours and is aggravated by movement, deep breathing, and eating. She vomits a few times nonbloody during the pain. She presented to [facility] and had unremarkable lab work. She was started on Levsin, famotidine and omeprazole. The pain eventually returned on day of admission while she was sitting again. She denies any other symptoms and upon evaluation in Room 312 she reports the pain has subsided, although it initially was resistance to morphine in the ER. She denies cough, fever, smoking, diarrhea. Admitted on 06/17/23 The pt was admitted for HIDA scan and GI consult.? HIDA scan with low gallbladder ejection fraction consistent with gallbladder dysfunction and/or chronic cholecystitis.? Status post EGD on 06/18/2023 which was normal. General surgery was consulted for abnormal HIDA scan. She will follow-up as an outpatient basis. It was deemed pain could be related to musculoskeletal reason and will be sent home on muscle relaxers. Other conservative treatment was also advised. Her symptoms improved significantly been able to tolerate diet. She has Zofran at home she takes for her nausea. Time Spent with Patient Time attestation: Total time spent providing and/or coordinating discharge services: 35 minutes Exam Narrative: GENERAL:? Well-nourished, and in no acute distress. HEAD: Normocephalic, atraumatic. ENT: Nares clear, no rhinorrhea or epistaxis.? Mucous membranes moist. NECK: Supple. CHEST: Clear to auscultation.? No respiratory distress. HEART: Regular rate and rhythm. ? Normal peripheral pulses. ABDOMEN: Soft,?nontender, nondistended. EXTREMITIES: Normal range of motion.? No edema. SKIN: Warm, dry, no rash. NEURO: Alert and oriented x3. PSYCH: Normal mood and affect. DS: Data Data Completed and Pending Pending studies at discharge: Pending at discharge 06/18/23 15:49 Surgical [PTH] Routine Labs on day of discharge: Labs from last 24 hours 06/19/23 06:17 WBC 8.8 RBC 4.22 Hgb 12.3 Hct 36.1 L MCV 85.5 MCH 29.1 MCHC 34.1 RDW 12.8 Plt Count 226 MPV 11.3 H Immature Gran % (Auto) 0.2 Neut % (Auto) 53.9 Lymph % (Auto) 37.5 Garfield % (Auto) 6.8 Eos % (Auto) 1.3 Baso % (Auto) 0.3 Lymph # (Auto) 3.30 H Garfield # (Auto) 0.6 Eos # (Auto) 0.1 Baso # (Auto) 0.0 Abs Immat Gran (auto) 0.02 Absolute Neuts (auto) 4.7 Absolute Nucleated RBC 0.0 Nucleated RBC % 0.0 Sodium 138 Potassium 3.3 L Chloride 106 Carbon Dioxide 22 Anion Gap 10 BUN 8 Creatinine 0.60 L Estim Creat Clear Calc 128 Estimated GFR > 60 Glucose 81 Calcium 8.4 Magnesium 2.1 Total Bilirubin 1.9 H AST 18 ALT 22 Alkaline Phosphatase 55 Total Protein 7.0 Albumin 3.5 Imaging Radiologist's impression: ITS Impressions Upper Quadrant Ultrasound 06/17/23 16:25 IMPRESSION: Poor visualization of the pancreas. Significant midline tenderness encountered during examination. Chest X-Ray 06/18/23 08:53 Impression: 1: No acute cardiopulmonary disease. Hepatobiliary Scan Nuclear Medicine 06/18/23 12:15 IMPRESSION: 1. Low gallbladder ejection fraction, consistent with gallbladder dysfunction and/or chronic cholecystitis. Discharge Plan Discharge Attending physician on discharge: Lester Donald Consulting providers: Francis Altman; Denise Kapoor; Gomez Mancini
--- NOTE | 2023-06-19 13:12 | WPDANESPN ---
Anes - Prog Note Post-Op Date/Time: 06/19/23 13:12 Cardiovascular status: normal Respiratory status: normal Airway patency: baseline Mental status: baseline Post-Op hydration status: normal Vital Signs: Last Vital Signs Temp 98.8 F 06/19/23 06:00 Pulse 85 06/19/23 06:00 Resp 18 06/19/23 06:00 BP 108/62 06/19/23 06:00 Pulse Ox 99 06/19/23 06:00 O2 Del Method Room Air 06/18/23 20:00 Pain Score (VAS): 0/10 I/O: Intake & Output 06/18/23 06/19/23 06/19/23 23:59 07:59 15:59 Intake Total 420 200 720 Balance 420 200 720 Laboratory Tests 06/19/23 06:17 06/19/23 06:17 06/19/23 06:17 WBC 8.8 RBC 4.22 Hgb 12.3 Hct 36.1 L MCV 85.5 MCH 29.1 MCHC 34.1 RDW 12.8 Plt Count 226 MPV 11.3 H Immature Gran % (Auto) 0.2 Neut % (Auto) 53.9 Lymph % (Auto) 37.5 Randall % (Auto) 6.8 Eos % (Auto) 1.3 Baso % (Auto) 0.3 Lymph # (Auto) 3.30 H Randall # (Auto) 0.6 Eos # (Auto) 0.1 Baso # (Auto) 0.0 Abs Immat Gran (auto) 0.02 Absolute Neuts (auto) 4.7 Absolute Nucleated RBC 0.0 Nucleated RBC % 0.0 Sodium 138 Potassium 3.3 L Chloride 106 Carbon Dioxide 22 Anion Gap 10 BUN 8 Creatinine 0.60 L Estim Creat Clear Calc 128 Estimated GFR > 60 Glucose 81 Calcium 8.4 Magnesium 2.1 Total Bilirubin 1.9 H AST 18 ALT 22 Alkaline Phosphatase 55 Total Protein 7.0 Albumin 3.5 Post-procedural complaints: none Patient Feedback: Patient satisfied with anesthetic care.
[2023-06-19 13:55] VITALS: BP 121/78; PULSE 82; RESP 18; TEMP 36.6; O2SAT 100
== END 2023-06-19 15:10 | disposition home or self-care (01) ==
LOC: ANHED 18:13 → ANH3MEDSUR 06-18 08:14
PROVIDERS: General Practice; Internal Medicine Gastroenterology; Admitting Provider Family Medicine; Emergency Provider Emergency Medicine; Visit Provider Internal Medicine
PROC: 0DJ08ZZ Inspection of Upper Intestinal Tract, Via Natural or Artificial Opening Endoscopic (ICD-10-PCS; CPT 43235; principal; 2023-06-18 15:30)
DX: R10.13 Epigastric pain (principal); D72.829 Elevated white blood cell count, unspecified; K21.9 Gastro-esophageal reflux disease without esophagitis; R63.0 Anorexia; Z68.31 Body mass index [BMI] 31.0-31.9, adult; Z20.822 Contact with and (suspected) exposure to COVID-19
CPT/HCPCS: 43239; 36415; 71046; 76705; 78226; 80053; 81003; 81025; 83690; 83735; 84484; 85025; 85027; 87081; 87637; 88305; 93005; 96361; 96374; 96375; 96376; 99285; A9270; A9537; C9113; G0378; J2270; J2405; J2550; J2704; J2765; J3480; J7030; J7040; J7120